=== PATIENT | female | born 1975 | race African-American/Black ===

== ENCOUNTER 2020-05-24 17:41 | Emergency (ER) | payer OTHER ==
[~2020-05-24] VITALS: Ht 157.5 cm; Wt 88.0 kg
--- NOTE | 2020-05-24 17:55 | Emergency Room Report ---
History of Present Illness General Chief Complaint: General Complaint Source: Patient Present Illness HPI 44 YO female presents to the ED very anxious and c/o CP, 7/10 in severity abd pain, early satiety, nausea, recent UTI, intermittent BUCIO, midline back pain. Family hx of gastric cancer and thyroid disorders. No significant PMHX. recently dx'd with anxiety. had bad reaction to Ativan. Took hydroxyzine a few times with no relief. Has been taking GI medications omeprazole, Zofran without relief. Pt. reports constipation as well. She has also been taking stool softeners with no relief. Pt. denies night sweats or significant changes in weight. She denies abdominal tenderness. Denies fevers or chills. She denies inability to swallow or tolerate her own secretions. She denies cardiac history or history of drug use. Patient denies smoking history. She denies shortness of breath. Allergies: Coded Allergies: No Known Allergies (Unverified , 05/24/20) COVID-19 Screening Contact w/high risk pt: No Experienced COVID-19 symptoms?: No COVID-19 Testing performed POLICE DETENTION ATTENDANT: No Patient History Past Medical History: see triage record Past Surgical History: none Pertinent Family History: none Last Menstrual Period: Apr 02, 2020 Now: No - unsure : 7 Para: 4 Reviewed Nursing Documentation: PMH: Agreed; PSxH: Agreed Nursing Documentation-PMH Past Medical History: No Stated History Review of Systems All Other Systems: negative except mentioned in HPI Physical Exam Vital Signs Date Time Temp Pulse Resp B/P (MAP) Pulse Ox O2 Delivery O2 Flow Rate FiO2 05/24/20 17:47 98.4 87 15 138/90 (106) 98 Room Air Sp02 EP Interpretation: reviewed, normal General Appearance: no apparent distress, alert, GCS 15, non-toxic Head: normocephalic, atraumatic Eyes: bilateral eye normal inspection, bilateral eye PERRL ENT: hearing grossly normal, normal voice Neck: full range of motion, no meningismus, no bony tend Respiratory: chest non-tender, lungs clear, normal breath sounds, no respiratory distress, no accessory muscle use, no wheezing, speaking full sentences Cardiovascular #1: regular rate, rhythm, no edema, normal capillary refill, systolic murmur Gastrointestinal: normal bowel sounds, non tender, soft, non-distended, no guarding Genitourinary: normal inspection, no CVA tenderness Musculoskeletal: normal range of motion, gait/station normal, non-tender Neurologic: alert, motor strength/tone normal, oriented x3, sensory intact, responsive, speech normal Psychiatric: judgement/insight normal Skin: no rash, normal color Lymphatic: no adenopathy Medical Decision Making PA Attestation Dr. Batista Is my supervising Physician whom patient management has been discussed with. Diagnostic Impression: Primary Impression: Tightness in chest Additional Impressions: Cardiac murmur, previously undiagnosed Hypokalemia ER Course 44 YO female presents to the ED very anxious and c/o CP, 7/10 in severity abd pain, early satiety, nausea, recent UTI, intermittent BUCIO, midline back pain. Family hx of gastric cancer and thyroid disorders. No significant PMHX. recently dx'd with anxiety. had bad reaction to Ativan. Took hydroxyzine a few times with no relief. Has been taking GI medications omeprazole, Zofran without relief. Pt. reports constipation as well. She has also been taking stool softeners with no relief. Pt. denies night sweats or significant changes in weight. She denies abdominal tenderness. Denies fevers or chills. She denies inability to swallow or tolerate her own secretions. She denies cardiac history or history of drug use. Patient denies smoking history. She denies shortness of breath. Ddx considered but are not limited to Diverticulitis, acute appy, diarrhea,UC, PUD, GE, thyroid disorder, pancreatitis, gallstone, URI, pneumonia, [place]/PE, COVID-19, anxiety, hypochondria or cancer just name a few Vital signs: are WNL, pt. is afebrile H&PE are most consistent with a person who is nontoxic in appearance and in no acute distress does not demonstrate acute abdomen on physical exam. No evidence of failure to thrive. Patient is very anxious and very detailed about her symptoms and I do suspect component of hypochondriasis. She becomes tearful at 1 point. PE of no suspicion at this time as patient is able to be ruled out by PERC calculation. Patient does have a systolic heart murmur that is auscultated during exam. ORDERS: CBC, CMP, lipase, UA: Unremarkable other than potassium of 3.0 - cxr: Unremarkable ED INTERVENTIONS: -Kcl 60 MeQ PO -I do not identify an emergent condition at this time. With current presentation, pt. is stable for close outpatient follow up and conservative treatment. D/w pt. to return promptly to ED with worsening or new symptoms.- Pt. verbalizes' understanding and agreement with proposed treatment plan. DISCHARGE: At this time pt. is stable for d/c to home. Will provide printed patient care instructions, and any necessary prescriptions. Care plan and follow up instructions have been discussed with the patient prior to discharge. Labs Test 05/24/20 19:01 05/24/20 19:12 Urine Color Pale yellow Urine Appearance Clear Urine pH 8 (4.5-8.0) Urine Specific [place] 1.010 (1.005-1.035) Urine Protein Negative (NEGATIVE) Urine Glucose (UA) Negative (NEGATIVE) Urine Ketones Negative (NEGATIVE) Urine Blood Negative (NEGATIVE) Urine Nitrite Negative (NEGATIVE) Urine Bilirubin Negative (NEGATIVE) Urine Urobilinogen Normal MG/DL (0.0-1.0) Urine Leukocyte Esterase 1+ (NEGATIVE) Urine RBC 0-2 /HPF (0 - 2) Urine WBC 0-2 /HPF (0 - 2) Urine Squamous Epithelial Cells Occasional /LPF Urine Bacteria None /HPF (NONE) Urine HCG, Qualitative Negative (NEGATIVE) Sodium Level 144 MMOL/L (136-145) Potassium Level 3.0 MMOL/L (3.5-5.1) Chloride Level 107 MMOL/L (98-107) Carbon Dioxide Level 30 MMOL/L (21-32) Anion Gap 7 mmol/L (5-15) Blood Urea Nitrogen 7 mg/dL (7-18) Creatinine 0.9 MG/DL (0.55-1.30) Estimat Glomerular Filtration Rate > 60 mL/min (>60) Glucose Level 86 MG/DL (74-106) Calcium Level 9.6 MG/DL (8.5-10.1) Total Bilirubin 0.3 MG/DL (0.2-1.0) Aspartate Amino Transf (AST/SGOT) 17 U/L (15-37) Alanine Aminotransferase (ALT/SGPT) 18 U/L (12-78) Alkaline Phosphatase 61 U/L (46-116) Total Protein 7.3 G/DL (6.4-8.2) Albumin 3.4 G/DL (3.4-5.0) Globulin 3.9 g/dL Albumin/Globulin Ratio 0.9 (1.0-2.7) Lipase 101 U/L (73-393) Thyroid Stimulating Hormone (TSH) 1.308 uiU/mL (0.358-3.740) Urine Opiates Screen Negative (NEGATIVE) Urine Barbiturates Screen Negative (NEGATIVE) Phencyclidine (PCP) Screen Negative (NEGATIVE) Urine Amphetamines Screen Negative (NEGATIVE) Urine Benzodiazepines Screen Negative (NEGATIVE) Urine Cocaine Screen Negative (NEGATIVE) Urine Marijuana (THC) Screen Negative (NEGATIVE) White Blood Count 8.0 K/UL (4.8-10.8) Red Blood Count 3.78 M/UL (4.20-5.40) Hemoglobin 11.7 G/DL (12.0-16.0) Hematocrit 36.4 % (37.0-47.0) Mean Corpuscular Volume 96 FL (80-99) Mean Corpuscular Hemoglobin 30.9 PG (27.0-31.0) Mean Corpuscular Hemoglobin Concent 32.1 G/DL (32.0-36.0) Red Cell Distribution Width 13.8 % (11.6-14.8) Platelet Count 282 K/UL (150-450) Mean Platelet Volume 6.5 FL (6.5-10.1) Neutrophils (%) (Auto) 67.2 % (45.0-75.0) Lymphocytes (%) (Auto) 25.4 % (20.0-45.0) Monocytes (%) (Auto) 5.8 % (1.0-10.0) Eosinophils (%) (Auto) 0.4 % (0.0-3.0) Basophils (%) (Auto) 1.1 % (0.0-2.0) Troponin I 0.000 ng/mL (0.000-0.056) EKG Diagnostic Results Troponin ordered: No EKG Time: 19:17 Rate: normal - 75 Rhythm: NSR ST Segments: no acute changes ASA given to the pt in ED: No PA Scribe Text This Interpretation was scribed by SAM Madison. Chest X-Ray Diagnostic Results Chest X-Ray Diagnostic Results : Chest X-Ray Ordered: Yes # of Views/Limited/Complete: 1 View Indication: Shortness of Breath EP Interpretation: Yes PA Xray: Interpretation reviewed, by supervising MD, and agrees with findings. Interpretation: no consolidation, no effusion, no pneumothorax, no acute cardiopulmonary disease Impression: No acute disease Electronically Signed by: Sylvie Madison PA-C Last Vital Signs Date Time Temp Pulse Resp B/P (MAP) Pulse Ox O2 Delivery O2 Flow Rate FiO2 05/24/20 17:47 98.4 87 15 138/90 (106) 98 Room Air Status: improved Disposition: HOME, SELF-CARE Condition: Stable Scripts Famotidine* (Pepcid 20mg tablet*) 20 Mg Tablet 20 MG ORAL TWICE A DAY for Gerd for 7 Days, #14 TAB 0 Refills Prov: Sylvie Madison 05/24/20 Prednisone* (PREDNISONE*) 2.5 Mg Tablet 2.5 MG ORAL DAILY for 5 Days, #5 TAB 0 Refills Prov: Sylvie Madison 05/24/20 Aspirin/Acetaminophen/Caffeine (EXCEDRIN MIGRAINE GELTAB) 1 Each Tablet 1 EACH PO Q6HR, #30 TAB Prov: Sylvie Madison 05/24/20 Cetirizine Hcl (ZyrTEC*) 10 Mg Tab.chew 10 MG PO DAILY for Allergies, #30 TAB Prov: Sylvie Madison 05/24/20 Patient Instructions: Food Choices for Gastroesophageal Reflux Disease, Adult, [id number], Heart Murmur, Hypoglycemia, [id number], Nonspecific Chest Pain, [id number] Additional Instructions: Follow Up for further evaluation: - Internal Controls Manager - for further evaluation of auscultated murmur. - Gastroenterology: - further evaluation for abdominal symptoms with no response to medications, Hx of gastric cancer in family, and persistent Constipation and feeling full quickly when attempting to eat. Sylvie Madison May 24, 2020 17:55
--- NOTE | 2020-05-24 17:57 | NUR ---
ED Nurse Note: pt walked in to ER from home due to epigastric pain with pressure in head x 1 month. pt aao x4 and ambulatory. skin clean and intact. calm and cooperative. no caridac or pulmonary distress noted at this time.
--- NOTE | 2020-05-24 19:12 | NUR ---
ED Nurse Note: Pt placed in gown. Urine and blood sent to lab, ekg in progress, warm blankets provided.
[2020-05-24 19:25] LABS: APPEARANCE,URINE CLEAR; BILIRUBIN, URINE NEGATIVE (NEGATIVE); COLOR,URINE PALE YELLOW; GLUCOSE, URINE (UA) NEGATIVE (NEGATIVE); KETONES,URINE NEGATIVE (NEGATIVE); LEUKOCYTE ESTERASE ,URINE 1+ (NEGATIVE); NITRITE,URINE NEGATIVE (NEGATIVE); PH,URINE 8 (4.5-8.0); PROTEIN,URINE NEGATIVE (NEGATIVE); UROBILINOGEN,URINE NORMAL MG/DL (0.0-1.0)
[2020-05-24 19:27] LABS: BASOPHILS % (AUTO) 1.1 % (0.0-2.0); EOSINOPHILS % (AUTO) 0.4 % (0.0-3.0); HEMATOCRIT 36.4 % (37.0-47.0); HEMOGLOBIN 11.7 G/DL (12.0-16.0); LYMPHOCYTES % (AUTO) 25.4 % (20.0-45.0); MEAN CORPUSCULAR VOLUME 96 FL (80-99); MONOCYTES % (AUTO) 5.8 % (1.0-10.0); NEUTROPHILS % (AUTO) 67.2 % (45.0-75.0); PLATELET COUNT 282 K/UL (150-450); RED BLOOD COUNT 3.78 M/UL (4.20-5.40); RED CELL DISTRIBUTION WIDTH 13.8 % (11.6-14.8)
[2020-05-24 19:38] LABS: ANION GAP 7 mmol/L (5-15); BLOOD UREA NITROGEN 7 mg/dL (7-18); CALCIUM 9.6 MG/DL (8.5-10.1); CARBON DIOXIDE 30 MMOL/L (21-32); CHLORIDE 107 MMOL/L (98-107); CREATININE 0.9 MG/DL (0.55-1.30); SODIUM 144 MMOL/L (136-145)
[2020-05-24 19:51] LABS: ALANINE AMINOTRANSFERASE 18 U/L (12-78); ALBUMIN 3.4 G/DL (3.4-5.0); ALBUMIN/GLOBULIN RATIO 0.9 (1.0-2.7); ALKALINE PHOSPHATASE 61 U/L (46-116); ASPARTATE AMINO TRANSFERASE 17 U/L (15-37); BILIRUBIN,TOTAL 0.3 MG/DL (0.2-1.0)
[2020-05-24] MEDS ORDERED: FAMOTIDINE20 MG ORAL (20:50)
[2020-05-24] MEDS ORDERED: EXCEDRIN MIGRA1 EACH PO (20:50)
[2020-05-24] MEDS ORDERED: PREDNISONE2.5 MG ORAL (20:50)
[2020-05-24] MEDS ORDERED: CETIRIZINE HCL10 M1 PO (20:50)
[2020-05-24] MEDS ORDERED: Excedrin Migraine tab ORAL ONE (21:00)
[2020-05-24 21:17] VITALS: BP 135/85
--- NOTE | 2020-05-24 21:17 | NUR ---
ER DISCHARGE NOTE: Patient is cleared to be discharged per ER MD, pt is aaox4, on room air, with stable vital signs. pt was given d/c and prescription instructions, pt was able to verbalize understanding, pt id band and iv site removed without complications. pt is able to ambulate with steady gait. pt took all belongings.
--- NOTE | 2020-05-25 10:15 | Diagnostic Imaging Report ---
Indication: Reason For Exam: CP Technique: XRAY Chest 1v Comparison: None. Findings: The patient has taken a poor inspiration. The heart is borderline enlarged The lungs are clear. There is no evidence of pleural fluid. The bony structures are unremarkable. Impression: Poor inspiratory chest. Borderline cardiomegaly.
--- NOTE | 2020-05-27 13:59 | Cardiology Report ---
APPROVED REPORT EKG Measurement Heart [id number] <Conclusion> Normal sinus rhythm with sinus arrhythmia Normal ECG
== END 2020-05-24 21:20 | disposition home or self-care (01) ==
LOC: EMR 18:04
DX: R07.9 Chest pain, unspecified (principal); R01.1 Cardiac murmur, unspecified; E87.6 Hypokalemia; Z83.79 Family history of other diseases of the digestive system
CPT/HCPCS: 36415; 71045; 80053; 80307; 81003; 81025; 83690; 84443; 84484; 85025; 93005; Z7502; 99284; J8499